=== PATIENT | male | born 1960 | race Caucasian/White ===

== ENCOUNTER 2018-02-07 23:16 | Emergency (ER) | payer OTHER ==
[~2018-02-07] VITALS: Ht 172.7 cm; Wt 60.0 kg
[2018-02-07 23:25] VITALS: BP 108/73; PULSE 68; RESP 18; TEMP 97.8; O2SAT 100
--- NOTE | 2018-02-07 23:38 | PD ---
HPI Chief Complaint: Sanders act Time Seen by Provider: 23:33 Travel History International Travel<30 days: No Contact w/Intl Traveler<30days: No Traveled to known affect area: No History of Present Illness HPI 57-year-old white male presents emergency department under Sanders act by PD. According to the Sanders act the patient was standing out in the traffic. When he was contacted by PD he could not determine whether he needed psychological evaluation or not. The patient here denies any suicidal or homicidal ideation. Patient does admit to recent alcohol use. He states that he is tired of living on the streets. He does not feel he gets respect from anyone. His left him a few months ago and left him stranded here in [place]. The patient admits to homelessness. He does drink alcohol on occasion. He denies any drugs. He denies any mental health problems. He denies any toxic ingestions. He does admit to chronic lower extremity pain from neuropathy. He reports a history of a gastric bypass and has lost over 100 pounds. He recently had his gallbladder out this past year. He denies any fever chills. No chest pain or shortness of breath. No nausea or vomiting. No abdominal pain or urinary symptoms. PFSH Past Medical History Narrative Medical Neuropathy, obesity with gastric bypass and weight [id number] male, gallstones with cholecystectomy Tetanus Vaccination: < 5 Years Past Surgical History Narrative Surgical Bertha-en-Y gastric bypass, cholecystectomy Social History Alcohol Use: Yes Tobacco Use: Yes Substance Use: No Allergies-Medications (Allergen,Severity, Reaction): Coded Allergies: No Known Allergies (Unverified , 02/07/18) Review of Systems General / Constitutional: No: Fever Eyes: No: Visual changes HENT: No: Headaches Cardiovascular: No: Chest Pain or Discomfort Respiratory: No: Shortness of Breath Gastrointestinal: No: Abdominal Pain Genitourinary: No: Dysuria Musculoskeletal: Positive: Pain (Chronic neuropathy) Skin: No Rash Neurologic: No: Weakness Psychiatric: Positive: Depression, Mood Disorder, No: Anxiety, Suicidal Ideations, Disorder of Thought, Substance Abuse, Homicidal Ideation Endocrine: No: Polydipsia Hematologic/Lymphatic: No: Easy Bruising Physical Exam Narrative GENERAL: Well-nourished, well-developed patient. SKIN: Warm and dry. HEAD: Normocephalic and atraumatic. EYES: No scleral icterus. No injection or drainage. ENT: No nasal drainage noted. Mucous membranes pink. Airway patent. NECK: Supple, trachea midline. Moves head freely without obvious discomfort. CARDIOVASCULAR: Regular rate and rhythm without murmurs, gallops, or rubs. RESPIRATORY: Breath sounds equal bilaterally. No accessory muscle use. GASTROINTESTINAL: Abdomen soft, non-tender, nondistended. EXTREMITIES: No cyanosis or edema. BACK: Nontender without obvious deformity. No CVA tenderness. NEURO: Patient is alert and oriented. no sensorimotor deficits. Nonfocal. Normal speech. PSYCH: No delusions. No auditory or visual hallucinations. Data Data Last Documented VS Vital Signs Date Time Temp Pulse Resp B/P (MAP) Pulse Ox O2 Delivery O2 Flow Rate FiO2 02/07/18 23:25 97.8 68 18 108/73 (85) 100 Orders Orders Complete Blood Count With Diff (02/07/18 23:33) Comprehensive Metabolic Panel (02/07/18 23:33) Thyroid Stimulating Hormone (02/07/18 23:33) Psych Screen (02/07/18 23:33) Drug Screen, Random Urine (02/07/18 23:33) Alcohol (Ethanol) (02/07/18 23:33) Salicylates (Aspirin) (02/07/18 23:33) Tylenol (Acetaminophen) (02/07/18 23:33) Labs Laboratory Tests Test 02/07/18 23:29 02/07/18 23:50 White Blood Count 6.0 TH/MM3 Red Blood Count 3.85 MIL/MM3 Hemoglobin 12.1 GM/DL Hematocrit 35.4 % Mean Corpuscular Volume 92.0 FL Mean Corpuscular Hemoglobin 31.5 PG Mean Corpuscular Hemoglobin Concent 34.2 % Red Cell Distribution Width 13.1 % Platelet Count 237 TH/MM3 Mean Platelet Volume 7.9 FL Neutrophils (%) (Auto) 51.7 % Lymphocytes (%) (Auto) 40.3 % Monocytes (%) (Auto) 6.4 % Eosinophils (%) (Auto) 1.2 % Basophils (%) (Auto) 0.4 % Neutrophils # (Auto) 3.1 TH/MM3 Lymphocytes # (Auto) 2.4 TH/MM3 Monocytes # (Auto) 0.4 TH/MM3 Eosinophils # (Auto) 0.1 TH/MM3 Basophils # (Auto) 0.0 TH/MM3 CBC Comment DIFF FINAL Differential Comment Blood Urea Nitrogen 8 MG/DL Creatinine 0.82 MG/DL Random Glucose 89 MG/DL Total Protein 7.1 GM/DL Albumin 3.5 GM/DL Calcium Level 8.7 MG/DL Alkaline Phosphatase 74 U/L Aspartate Amino Transf (AST/SGOT) 49 U/L Alanine Aminotransferase (ALT/SGPT) 37 U/L Total Bilirubin 0.4 MG/DL Sodium Level 140 MEQ/L Potassium Level 3.5 MEQ/L Chloride Level 107 MEQ/L Carbon Dioxide Level 21.9 MEQ/L Anion Gap 11 MEQ/L Estimat Glomerular Filtration Rate 98 ML/MIN Thyroid Stimulating Hormone 3rd Gen 3.870 uIU/ML Salicylates Level LESS THAN 1.7 MG/DL Acetaminophen Level LESS THAN 2.0 MCG/ML Ethyl Alcohol Level 190 MG/DL Urine Opiates Screen NEG Urine Barbiturates Screen NEG Urine Amphetamines Screen NEG Urine Benzodiazepines Screen NEG Urine Cocaine Screen NEG Urine Cannabinoids Screen NEG MDM Medical Decision Making Medical Screen Exam Complete: Yes Emergency Medical Condition: Yes Medical Record Reviewed: Yes Interpretation(s) Laboratory Tests Test 02/07/18 23:29 02/07/18 23:50 White Blood Count 6.0 TH/MM3 Red Blood Count 3.85 MIL/MM3 Hemoglobin 12.1 GM/DL Hematocrit 35.4 % Mean Corpuscular Volume 92.0 FL Mean Corpuscular Hemoglobin 31.5 PG Mean Corpuscular Hemoglobin Concent 34.2 % Red Cell Distribution Width 13.1 % Platelet Count 237 TH/MM3 Mean Platelet Volume 7.9 FL Neutrophils (%) (Auto) 51.7 % Lymphocytes (%) (Auto) 40.3 % Monocytes (%) (Auto) 6.4 % Eosinophils (%) (Auto) 1.2 % Basophils (%) (Auto) 0.4 % Neutrophils # (Auto) 3.1 TH/MM3 Lymphocytes # (Auto) 2.4 TH/MM3 Monocytes # (Auto) 0.4 TH/MM3 Eosinophils # (Auto) 0.1 TH/MM3 Basophils # (Auto) 0.0 TH/MM3 CBC Comment DIFF FINAL Differential Comment Blood Urea Nitrogen 8 MG/DL Creatinine 0.82 MG/DL Random Glucose 89 MG/DL Total Protein 7.1 GM/DL Albumin 3.5 GM/DL Calcium Level 8.7 MG/DL Alkaline Phosphatase 74 U/L Aspartate Amino Transf (AST/SGOT) 49 U/L Alanine Aminotransferase (ALT/SGPT) 37 U/L Total Bilirubin 0.4 MG/DL Sodium Level 140 MEQ/L Potassium Level 3.5 MEQ/L Chloride Level 107 MEQ/L Carbon Dioxide Level 21.9 MEQ/L Anion Gap 11 MEQ/L Estimat Glomerular Filtration Rate 98 ML/MIN Thyroid Stimulating Hormone 3rd Gen 3.870 uIU/ML Salicylates Level LESS THAN 1.7 MG/DL Acetaminophen Level LESS THAN 2.0 MCG/ML Ethyl Alcohol Level 190 MG/DL Urine Opiates Screen NEG Urine Barbiturates Screen NEG Urine Amphetamines Screen NEG Urine Benzodiazepines Screen NEG Urine Cocaine Screen NEG Urine Cannabinoids Screen NEG Differential Diagnosis MDM: High Differential diagnoses: Schizophrenia, schizoaffective disorder, bipolar, anxiety, depression, adjustment reaction, mood disorder NOS, ODD, depressive disorder NOS, dementia, dementia with agitation, psychosis NOS, substance induced mood disorder, DMDD, Asperger syndrome, infection,electrolyte abnormality, malingering. Narrative Course Mental health screening discussed with the patient. Psychiatric screen ordered. The patient been medically cleared. This is medical clearance for psychiatric admission Diagnosis Primary Impression: Medical clearance for psychiatric admission Condition: Stable Damian Holt Feb 07, 2018 23:38
[2018-02-08 00:03] LABS: AUTOMATED NEUTROPHIL # 3.1 TH/MM3 (1.8-7.7); BASOPHIL % 0.4 % (0.0-2.0); EOSINOPHIL # 0.1 TH/MM3 (0-0.4); EOSINOPHIL % 1.2 % (0.0-4.0); HEMATOCRIT 35.4 % (39.0-51.0); HEMOGLOBIN 12.1 GM/DL (13.0-17.0); LYMPH % 40.3 % (9.0-44.0); LYMPHOCYTE # 2.4 TH/MM3 (1.0-4.8); MEAN CORPUSCULAR HEMOGLOBIN 31.5 PG (27.0-34.0); MEAN CORPUSCULAR HGB CONC 34.2 % (32.0-36.0); MEAN PLATELET VOLUME 7.9 FL (7.0-11.0); MONO % 6.4 % (0.0-8.0); MONOCYTE # 0.4 TH/MM3 (0-0.9); NEUT % 51.7 % (16.0-70.0); PLATELET COUNT 237 TH/MM3 (150-450); RED BLOOD COUNT 3.85 MIL/MM3 (4.50-5.90); RED CELL DISTRIBUTION WIDTH 13.1 % (11.6-17.2)
[2018-02-08 00:15] LABS: ALBUMIN 3.5 GM/DL (3.4-5.0); ALT (GPT) 37 U/L (12-78); AST (GOT) 49 U/L (15-37); BICARBONATE 21.9 MEQ/L (21.0-32.0); BLOOD UREA NITROGEN 8 MG/DL (7-18); CALCIUM 8.7 MG/DL (8.5-10.1); CHLORIDE 107 MEQ/L (98-107); CREATININE 0.82 MG/DL (0.60-1.30); GLOMERULAR FILTRATION RATE 98 ML/MIN (>89); GLUCOSE,RANDOM 89 MG/DL (74-106); SODIUM (NA) 140 MEQ/L (136-145)
[2018-02-08 00:25] LABS: ALKALINE PHOSPHATASE 74 U/L (45-117); TOTAL BILIRUBIN ADULT 0.4 MG/DL (0.2-1.0); TOTAL PROTEIN 7.1 GM/DL (6.4-8.2)
[2018-02-08 00:27] LABS: ACETAMINOPHEN LESS THAN 2.0 MCG/ML (10.0-30.0)
--- NOTE | 2018-02-08 14:48 | PD ---
History of Present Illness Chief Complaint: Psychiatric Symptoms Time Seen by Provider: 14:30 Travel History International Travel<30 Days: No Contact w/Intl Traveler<30days: No Known affected area: No Legal Status Legal Status: Sanders Act Sanders Act Signed By: Oksana Fowler History of Present Illness: Patient is a 57-year-old male who was placed under a Sanders act by [facility] Police Department. Sanders act states ,"Scott Hunt was found standing in the road in the britta of oncoming traffic when law enforcement may contact with him." Patient states he has multiple stressors. His of 17 years has been taking opiates and is on medical marijuana. She took his car and cleared out his checking account and relocated to [place]. He states that her son who was in senior care for murder just and this complicated the situation placing a strain on their relationship. He moved all of the belongings from his home to a 10 x 13 storage container and had to give away most of his belongings. He states that January 21 is also the date when his halfway cat and his beloved sister on January 28 of last year. He states he does not drink, but was overwhelmed so he drank yesterday. He does not recall being in traffic. He was 245 pounds but is now 140 after his gastric bypass surgery and contributes the amount of alcohol he drank to his absorption. His blood alcohol on arrival was 190. He states that he does not drink on a daily basis that yesterday's alcohol consumption was due to the many sad events that have taken place in a short period of time and he was stressed. Chart reviewed and patient discussed with RACHNA Crooks. Patient is in Room J 104 in a hospital gown. He is dishevel . Alert and oriented x4. Very articulate and insightful. He is sad with blunted affect. He admits that he is grieving the loss of his stepson ( the one in senior care) and that his left him. He has good concentration . Good recall of both recent and remote memory. Steady gait. Thinking is concrete. Patient states he has an annuity and his monthly income is $4,100. He was without money for 9 days and was living in and out of his storage unit. He plans to obtain a hotel until he can purchase a trailer. 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 He asked for resources on counseling and acknowledges that he is grieving and needs help. He denies SI /HI. Patient is at low risk for self harm or harming others. Based on his presentation today , I will lift the Sanders Act. Patient was given a packet of local resources. He has also indicated that he has the finances for private counseling. Dx: Mood disorder, Alcohol induced. PFSH Past Medical History Medical History: Denies Significant Hx Diminished Hearing: No Tetanus Vaccination: < 5 Years Past Surgical History Surgical History: No Previous Surgery Psychiatric History Psychiatric History No past psychiatric care. Hx Psychiatric Treatment: Patient denies any inpatient or outpatient psychiatric treatment. History of Inpatient Treatment: No Social History Hx Alcohol Use: Yes Hx Tobacco Use: Yes Hx Substance Use: Yes (alcohol) Hx of Substance Use Treatment: No Allergies-Medications (Allergen,Severity, Reaction): Coded Allergies: No Known Allergies (Unverified , 02/07/18) Mental Status Examination Appearance: Disheveled Consciousness: Alert Orientation: x4 Motor Activity: Normal gait Speech: Unremarkable Language: Adequate Fund of Knowledge: Adequate Attention and Concentration: Adequate Memory: Unremarkable Mood: Sad Affect: Sad Thought Process & Associations: Intact Thought Content: Appropriate Hallucination Type: None Delusion Type: None Suicidal Ideation: No Suicidal Plan: No Suicidal Intention: No Homicidal Ideation: No Homicidal Plan: No Homicidal Intention: No Insight: Adequate Judgment: Adequate [facility] Medical Decision Making Medical Record Reviewed: Yes Assessment/Plan 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 left and cleared his account and took his car, sister , step son passed and halfway cat passed. He states he was overwhelmed yesterday because he had no access to money and has been walking for 8 days waiting for his monthly annuity check of $4,100 to clear. He states he does not drink regularly , but yesterday drank "too much." He had gastric bypass and thinks he miscalculated his absorption of the alcohol. He has no recall of walking into traffic. Patient is at low risk for self harm or harm to others. He is talking about resources to obtain some grief counseling. 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 Based on his presentation, I will lift the Sanders Act. Orders Orders Complete Blood Count With Diff (02/07/18 23:33) Comprehensive Metabolic Panel (02/07/18 23:33) Thyroid Stimulating Hormone (02/07/18 23:33) Psych Screen (02/07/18 23:33) Drug Screen, Random Urine (02/07/18 23:33) Alcohol (Ethanol) (02/07/18 23:33) Salicylates (Aspirin) (02/07/18 23:33) Tylenol (Acetaminophen) (02/07/18 23:33) Diet Regular Basic (02/08/18 Breakfast) Diet Regular Basic (02/08/18 Lunch) Results Vital Signs Date Time Temp Pulse Resp B/P (MAP) Pulse Ox O2 Delivery O2 Flow Rate FiO2 02/07/18 23:25 97.8 68 18 108/73 (85) 100 Laboratory Tests Test 02/07/18 23:29 02/07/18 23:50 White Blood Count 6.0 Red Blood Count 3.85 Hemoglobin 12.1 Hematocrit 35.4 Mean Corpuscular Volume 92.0 Mean Corpuscular Hemoglobin 31.5 Mean Corpuscular Hemoglobin Concent 34.2 Red Cell Distribution Width 13.1 Platelet Count 237 Mean Platelet Volume 7.9 Neutrophils (%) (Auto) 51.7 Lymphocytes (%) (Auto) 40.3 Monocytes (%) (Auto) 6.4 Eosinophils (%) (Auto) 1.2 Basophils (%) (Auto) 0.4 Neutrophils # (Auto) 3.1 Lymphocytes # (Auto) 2.4 Monocytes # (Auto) 0.4 Eosinophils # (Auto) 0.1 Basophils # (Auto) 0.0 CBC Comment DIFF FINAL Differential Comment Blood Urea Nitrogen 8 Creatinine 0.82 Random Glucose 89 Total Protein 7.1 Albumin 3.5 Calcium Level 8.7 Alkaline Phosphatase 74 Aspartate Amino Transf (AST/SGOT) 49 Alanine Aminotransferase (ALT/SGPT) 37 Total Bilirubin 0.4 Sodium Level 140 Potassium Level 3.5 Chloride Level 107 Carbon Dioxide Level 21.9 Anion Gap 11 Estimat Glomerular Filtration Rate 98 Thyroid Stimulating Hormone 3rd Gen 3.870 Salicylates Level LESS THAN 1.7 Acetaminophen Level LESS THAN 2.0 Ethyl Alcohol Level 190 Urine Opiates Screen NEG Urine Barbiturates Screen NEG Urine Amphetamines Screen NEG Urine Benzodiazepines Screen NEG Urine Cocaine Screen NEG Urine Cannabinoids Screen NEG Diagnosis Primary Impression: Alcohol-induced mood disorder Condition: Stable Martha Armendariz Feb 08, 2018 14:48
[2018-02-08 15:24] VITALS: BP 133/77; PULSE 59; RESP 16; TEMP 98.7; O2SAT 100
--- NOTE | 2018-02-08 15:46 | PD ---
Physical Exam Time Seen by Provider: 15:44 Narrative ANNA Baker has evaluated patient, lifted the Sanders act and cleared the patient for discharge. Data Data Last Documented VS Vital Signs Date Time Temp Pulse Resp B/P (MAP) Pulse Ox O2 Delivery O2 Flow Rate FiO2 02/08/18 15:24 98.7 59 16 133/77 (95) 100 Room Air Orders Orders Complete Blood Count With Diff (02/07/18 23:33) Comprehensive Metabolic Panel (02/07/18 23:33) Thyroid Stimulating Hormone (02/07/18 23:33) Psych Screen (02/07/18 23:33) Drug Screen, Random Urine (02/07/18 23:33) Alcohol (Ethanol) (02/07/18 23:33) Salicylates (Aspirin) (02/07/18 23:33) Tylenol (Acetaminophen) (02/07/18 23:33) Diet Regular Basic (02/08/18 Breakfast) Diet Regular Basic (02/08/18 Lunch) Diet Regular Basic (02/08/18 Dinner) Labs Laboratory Tests Test 02/07/18 23:29 02/07/18 23:50 White Blood Count 6.0 TH/MM3 Red Blood Count 3.85 MIL/MM3 Hemoglobin 12.1 GM/DL Hematocrit 35.4 % Mean Corpuscular Volume 92.0 FL Mean Corpuscular Hemoglobin 31.5 PG Mean Corpuscular Hemoglobin Concent 34.2 % Red Cell Distribution Width 13.1 % Platelet Count 237 TH/MM3 Mean Platelet Volume 7.9 FL Neutrophils (%) (Auto) 51.7 % Lymphocytes (%) (Auto) 40.3 % Monocytes (%) (Auto) 6.4 % Eosinophils (%) (Auto) 1.2 % Basophils (%) (Auto) 0.4 % Neutrophils # (Auto) 3.1 TH/MM3 Lymphocytes # (Auto) 2.4 TH/MM3 Monocytes # (Auto) 0.4 TH/MM3 Eosinophils # (Auto) 0.1 TH/MM3 Basophils # (Auto) 0.0 TH/MM3 CBC Comment DIFF FINAL Differential Comment Blood Urea Nitrogen 8 MG/DL Creatinine 0.82 MG/DL Random Glucose 89 MG/DL Total Protein 7.1 GM/DL Albumin 3.5 GM/DL Calcium Level 8.7 MG/DL Alkaline Phosphatase 74 U/L Aspartate Amino Transf (AST/SGOT) 49 U/L Alanine Aminotransferase (ALT/SGPT) 37 U/L Total Bilirubin 0.4 MG/DL Sodium Level 140 MEQ/L Potassium Level 3.5 MEQ/L Chloride Level 107 MEQ/L Carbon Dioxide Level 21.9 MEQ/L Anion Gap 11 MEQ/L Estimat Glomerular Filtration Rate 98 ML/MIN Thyroid Stimulating Hormone 3rd Gen 3.870 uIU/ML Salicylates Level LESS THAN 1.7 MG/DL Acetaminophen Level LESS THAN 2.0 MCG/ML Ethyl Alcohol Level 190 MG/DL Urine Opiates Screen NEG Urine Barbiturates Screen NEG Urine Amphetamines Screen NEG Urine Benzodiazepines Screen NEG Urine Cocaine Screen NEG Urine Cannabinoids Screen NEG MDM Supervised Visit with [place]: No Narrative Course ANNA Baker has evaluated patient, lifted the Sanders act and cleared the patient for discharge. Patient contracts safety. Denies suicidal or homicidal ideations. Patient will be provided community resource packet to [facility]/ [facility] for follow-up. Has friends and family for support. Patient was medically cleared by alternate provider prior to psych screening. Patient has been evaluated by psychiatry and and is now cleared for discharge. Diagnosis Primary Impression: Alcohol-induced mood disorder Referrals: [facility] (Out patient) [facility] Primary Care Physician Psychiatrist [facility] Patient Instructions: Abuse of Alcohol (ED), Alcohol Dependence (ED), Alcohol Intoxication (ED), General Instructions, Mood Disorders (ED) Additional Instruction: Contract safety to your self and others Stop drinking alcohol or drink alcohol in moderation Follow-up in the community for support, such as with Alcoholics Anonymous Follow-up with psychiatry Follow-up with primary care provider Follow-up with Kosta Perkins Return to the emergency department immediately with worsening of symptoms Med/Other Pt SpecificInfo: No Change to Meds, No Meds Exist/No RX given Disposition: 01 DISCHARGE HOME Condition: Stable Monica Niño Feb 08, 2018 15:46
== END 2018-02-08 16:01 | disposition home or self-care (01) ==
LOC: NEPD 23:16 → NEPJ 02-08 16:01
DX: F10.94 Alcohol use, unspecified with alcohol-induced mood disorder (principal); Z72.0 Tobacco use
CPT/HCPCS: 80053; 80307; 84443; 85025; 99283